=== PATIENT | male | born 1950 | race African-American/Black ===

== ENCOUNTER → 2018-02-25 | Outpatient (CLI) | payer OTHER, MEDICARE ==
[~2018-02-25] MED LIST: AMLO10TA6 PO; FLUO20CA8 PO; HYDR30CR61 TP; IBUP-1060 PO; TAMS0.4C2 PO
[2018-02-25 10:29] LABS: BASO % 1 % (0-3); EOS # 0.3 x10^3/uL (0.0-0.7); EOS % 5 % (0-3); HEMATOCRIT 40.2 % (39.0-53.0); HEMOGLOBIN 13.5 g/dL (13.0-17.5); LYMPH # 1.2 x10^3/uL (1.0-4.8); LYMPH % 19 % (24-48); MEAN CORPUSCULAR HEMOGLOBIN 29 pg (25-35); MEAN CORPUSCULAR HGB CONC 34 g/dL (31-37); MEAN CORPUSCULAR VOLUME 85 fL (79-100); MONO # 0.6 x10^3/uL (0.0-1.1); MONO % 9 % (0-9); NEUT # 4.3 x10^3uL (1.8-7.7); NEUT % 66 % (31-73); PLATELET COUNT 186 x10^3/uL (140-400); RED BLOOD COUNT 4.73 x10^6/uL (4.30-5.70); RED CELL DISTRIBUTION WIDTH 14.9 % (11.5-14.5); WHITE BLOOD COUNT 6.4 x10^3/uL (4.0-11.0)
[2018-02-25 10:43] LABS: ALBUMIN 3.5 g/dL (3.4-5.0); CREATININE 1.1 mg/dL (0.7-1.3); GFR 81.3; POTASSIUM 3.6 mmol/L (3.5-5.1); TOTAL BILIRUBIN 0.6 mg/dL (0.2-1.0)
--- NOTE | 2018-03-02 11:12 | NUR ---
FAXED PRE -OP LAB REPORTS TO 'S OFFICE 02/26/2018 AT 0930 AND RECEIVED TRANSMITTAL CONFIRMATION.
== END | disposition home or self-care (01) ==
LOC: SURGPAT 09:55
PROVIDERS: ATTEND Surgery
DX: Z01.818 Encounter for other preprocedural examination (principal); K80.20 Calculus of gallbladder without cholecystitis without obstruction
CPT/HCPCS: 36415; 80048; 82040; 82247; 85025

== ENCOUNTER → 2018-03-05 | Day surgery (SDC) | payer OTHER ==
[~2018-03-05] VITALS: Ht 182.9 cm; Wt 98.0 kg
[~2018-03-05] MED LIST changes: +BUPIVAC MPF-EPI 0.5%-1:200000 30 ML VIAL. ONE; +DEXAMETHASONE SOD PHOS 20 MG/5 ML VIAL. ONE; +GLUCAGON,HUMAN RECOMBINANT 1 MG/ML VIAL. ONE; +GLYCOPYRROLATE 1 MG/5 ML VIAL. ONE; +HYDROmorphone 2 MG/ML VIAL IV PRN; +IOHEXOL 300 MG/ML 100ML VIAL. ONE; +IV RINGERS,LACTATED 1000ML 1,000 ML IV SCH; +KETOROLAC 30 MG/ML INJ FOR OR. INJ ONE; +LIDOCAINE 1% PF 2 ML VIAL. ID PRN; +LIDOCAINE 2% PF Vial for OR 5 ML VIAL. ONE; +MORPHINE SULFATE 4 MG/ML VIAL. IV PRN; +MORPHINE SULFATE 4 MG/ML VIAL. ONE; +NEOSTIGMINE 10 MG/10 ML VIAL. ONE; +ONDANSETRON PF 4 MG/2 ML VIAL. IV PRN; +ONDANSETRON PF 4 MG/2 ML VIAL. ONE; +OXYC1TAB15 PO; +PROCHLORPERAZINE 10 MG/2 ML VIAL. IV PRN; +PROPOFOL 20 ML IV ONE; +ROCURONIUM 50 MG/5 ML VIAL. ONE; +SEVOFLURANE 61 TO 120 MINUTES. IH ONE; +SURGICEL HEMOSTAT 4X8 EACH. ONE; +fentaNYL PF VIAL 100 MCG/2 ML VIAL IV PRN; +fentaNYL PF VIAL 100 MCG/2 ML VIAL ONE; +oxyCODONE/APAP 5/325 1 TAB TABLET PO ONE
--- NOTE | 2018-03-05 12:32 | RAD ---
Intraoperative cholangiogram, 03/05/2018: HISTORY: Cholecystectomy 3 spot films from surgery are presented for review. Contrast has been injected into the cystic duct remnant. 29 seconds of fluoroscopy time was utilized. There is good flow contrast into the duodenum at the ampulla. The common duct is of normal caliber. No filling defect is seen in the common duct to suggest a retained calculus. There was no significant reflux of contrast into the intrahepatic biliary system on these images. No contrast extravasation is seen. IMPRESSION: No evidence of a retained common duct calculus. Electronically signed by: Deepak Todd MD (03/05/2018 12:27 PM) [facility]
--- NOTE | 2018-03-05 13:00 | PDOC ---
BRIEF OPERATIVE NOTE Date: Mar 05, 2018 Pre-Op Diagnosis symptomatic cholelithiasis Post-Op Diagnosis same Procedure Performed l/s linda with saad Surgeon Fabian Machine Rough Rounder Saima DALY Anesthesia Type: General Blood Loss 10cc IV Fluid 800cc Specimens Obtained GB Findings normal distal duct on grams, no abnormalities seen Complications none Operative Note WK # [id number] FRIDA DE LEON MD Mar 05, 2018 13:00
--- NOTE | 2018-03-05 13:01 | DISCH ---
DISCHARGE INSTRUCTIONS Condition on Discharge Condition on Discharge: Stable Activity After Discharge Activity Instructions for Disc: Resume previous activity, Activity as tolerated Lifting Instructions after Dis: No heavy lifting Driving Instructions after Dis: Do not drive (3-4 days) Diet after Discharge Diet after Discharge: Regular Wound Incision Care Wound/Incision Care: Ice to area for comfort Other wound/incision instructi: june shower Thursday Follow-Up Follow up with: Fabian Thursday for drain removal FRIDA DE LEON MD Mar 05, 2018 13:01
[2018-03-05] MEDS: fentaNYL PF VIAL 100 MCG/2 ML VIAL IV PRN ×2 (13:09→13:18)
--- NOTE | 2018-03-05 13:09 | OP ---
DATE OF SURGERY: 03/05/2018 PREOPERATIVE DIAGNOSIS: Symptomatic cholelithiasis. POSTOPERATIVE DIAGNOSIS: Symptomatic cholelithiasis. PROCEDURE: Laparoscopic cholecystectomy. SURGEON: Alexys De Leon MD MILK OF LIME SLAKER: MALIKA Wolfe. ANESTHESIA: General endotracheal. ESTIMATED BLOOD LOSS: 10.. IV FLUID: 800. DESCRIPTION OF PROCEDURE: The patient was brought to the operating suite, given a general endotracheal anesthetic and the abdomen prepped and draped in usual sterile fashion. A supraumbilical incision was infiltrated with local anesthetic, incised and a 5 mm Visiport used to safely gain access into the abdominal cavity, taking care to avoid injury to abdominal contents. Pneumoperitoneum established. Camera inserted. Inspection carried out. Liver was smooth and sharp. The gallbladder was supple with what appeared to be stones. Visual inspection of the remainder of the abdomen failed to reveal obvious abnormalities. The table was placed in reverse Trendelenburg rolled on to the left, and the epigastric, midclavicular and lateral ports were placed under direct vision. The gallbladder was retracted superolaterally, and the cystic duct and cystic artery were exposed. The duct was clipped on the gallbladder side. Cholangiograms were made. Despite steep Trendelenburg, I was unable to feel the proximal ducts, however, the distal duct did not demonstrate filling defect and contrast spilled freely into the duodenum. In light of this, the catheter was removed. The cystic duct was clipped x 3 and divided, taking care to avoid injury or compromise of the common duct. An anterior, posterior and tertiary vessels were all controlled with clips, divided and gallbladder freed from the bed and placed in an EndoCatch bag. Hemostasis obtained in the fossa with cautery and a small piece of Surgicel. Hemostasis was present. No evidence of bile leak was seen. A 19-Swiss round Yohan drain was brought through the epigastric port out the lateral ports, sewn to the skin with a silk stitch and left in the subhepatic space for postoperative drainage. Table returned to level. Gallbladder delivered through the epigastric incision. Epigastric incision was closed with 0 Vicryl suture. At 6 cm intra-abdominal pressure, no bleeding from the epigastric closure or from the midclavicular port after its removal or from the drain site. Abdomen decompressed, camera slowly removed, no bleeding seen. Skin incisions closed with subcuticular 4-0 Monocryl. Steri-Strips and sterile dressings applied. The patient was awakened from his anesthetic and taken to the recovery room in satisfactory condition. ALEXYS DE LEON MD DR: ANU/pato JOB#: [id number] / [id number]
[2018-03-05 17:35] VITALS: BP 130/82
--- NOTE | 2018-03-08 16:09 | PATHOLOGY ---
[facility] Accession Number: [id number] . 01 Material submitted: . GALLBLADDER . 01 Clinical history: . Cholelithiasis. . 02 Diagnosis: Gallbladder, cholecystectomy: - Cholelithiasis. - Chronic cholecystitis. LBQ/03/08/2018 . 02 Comment: There is no evidence of malignancy. (JPM/db; 03/08/2018) . 02 Electronically signed: . Fredo Hernandez MD, Pathologist NPI- [id number] . 01 Gross description: . Received in formalin labeled "Johnson, René, gallbladder" is an intact cholecystectomy specimen measuring 9.5 x 3.3 x 2.4 cm. The serosa is pink-puentes and smooth and the specimen is opened to reveal yellow-green velvety mucosa without polyps or masses. The average wall thickness measures 0.2 cm. One yellow-green ovoid calculus measuring 2.2 cm in greatest dimension is present. Marble Machine Operator sections of the fundus, body, and the cystic duct margin are submitted in cassette A1. ([facility] [place]; 03/07/2018) SY/SYC . 02 Pathologist provided ICD-10: K80.10 . 02 CPT . 347152 Specimen Comment: A courtesy copy of this report has been sent to Specimen Comment: [phone], . Specimen Comment: Report sent to / DR VALDERRAMA Performed at: 01 [facility] [address], [place] [id number] MD Pio Tamez MD Phone: [phone] Performed at: 02 [facility] [address] [place], [place] [id number] MD Fredo Hernandez MD Phone: [phone]
== END | disposition home or self-care (01) ==
LOC: SURG 10:10 → EDUNIT# 11:00
PROVIDERS: ATTEND Surgery
DX: K80.10 Calculus of gallbladder with chronic cholecystitis without obstruction (principal); Z88.0 Allergy status to penicillin; Z79.899 Other long term (current) drug therapy
CPT/HCPCS: 47563; 74300; A7015; J0780; J1100; J1885; J1956; J2001; J2270; J2405; J2704; J2710; J3010; J3490; J7030; Q9967; 88304; J1610